=== PATIENT | male | born 1970 | race Caucasian/White ===

== ENCOUNTER 2017-11-14 12:28 | Emergency (ER) | payer SELFPAY ==
[~2017-11-14] VITALS: Ht 172.7 cm; Wt 79.4 kg
[2017-11-14 12:36] VITALS: BP_SYST 147
[2017-11-14] MEDS ORDERED: IBUPROFEN 800 MG TABLET PO ONE (13:15)
[2017-11-14 13:49] VITALS: BP_SYST 135
== END 2017-11-14 13:47 | disposition home or self-care (01) ==
LOC: SED 12:28
DX: S60.462A Insect bite (nonvenomous) of right middle finger, initial encounter (principal); L03.011 Cellulitis of right finger; W57.XXXA Bitten or stung by nonvenomous insect and other nonvenomous arthropods, initial encounter; Y93.89 Activity, other specified; Y92.89 Other specified places as the place of occurrence of the external cause; Y99.8 Other external cause status
CPT/HCPCS: 99283

== ENCOUNTER 2017-11-26 22:11 | Emergency (ER) | payer OTHER ==
[~2017-11-26] VITALS: Ht 172.7 cm; Wt 81.6 kg
[2017-11-26 22:11] VITALS: BP_SYST 164
== END 2017-11-26 22:23 ==
LOC: SED 22:11
DX: Z02.89 Encounter for other administrative examinations (principal)

== ENCOUNTER 2018-01-06 09:19 | Emergency (ER) | payer MEDICAID ==
[~2018-01-06] VITALS: Ht 172.7 cm; Wt 81.6 kg
[2018-01-06 10:30] VITALS: BP_SYST 150
[2018-01-06] MEDS ORDERED: NACL 0.9% 1,000 ML IV ONE (11:07)
[2018-01-06] MEDS ORDERED: FOLIC ACID 1 MG, THIAMINE HCL 100 MG, MAGNESIUM SULFATE 1 GM, MVI 10 ML in NACL 0.9% 1,... IV ONE (11:15)
[2018-01-06 11:32] LABS: BASOPHILS # (AUTO) 0.5 K/uL (0.0-0.2); BASOPHILS % (AUTO) 3.9 % (0.0-2.0); EOSINOPHILS # (AUTO) 0.1 K/uL (0.0-0.4); EOSINOPHILS % (AUTO) 0.9 % (0.0-4.0); HEMATOCRIT 49.9 % (36-54); MEAN CORPUSCULAR HEMOGLOBIN 32 pg (27-31); MEAN CORPUSCULAR HGB CONC 34 % (32-36); MEAN CORPUSCULAR VOLUME 94 fL (79.0-98.0); MONOCYTES # (AUTO) 0.5 K/uL (0.0-1.0); MONOCYTES % (AUTO) 4.4 % (1.7-9.3); NEUTROPHILS # (AUTO) 8.5 K/uL (1.8-7.7); NEUTROPHILS % (AUTO) 73.8 % (40.0-70.0); PLATELET COUNT (AUTO) 272 K/uL (130-430); RED BLOOD CELL COUNT(AUTO) 5.32 MIL/uL (4.2-6.2); RED CELL DISTRIBUTION WIDTH 13.1 % (9.0-15.0); WHITE BLOOD COUNT (AUTO) 11.6 K/uL (4.8-10.8)
[2018-01-06 11:33] LABS: BILIRUBIN,URINE NEGATIVE (NEGATIVE); BLOOD, URINE NEGATIVE (NEGATIVE); CLARITY/URINE CLEAR (CLEAR); COLOR,URINE YELLOW (YELLOW); GLUCOSE,URINE NEGATIVE (NEGATIVE); KETONES,URINE NEGATIVE (NEGATIVE); LEUKOCYTE ESTERASE ,URINE NEGATIVE (NEGATIVE); NITRITE, URINE NEGATIVE (NEGATIVE); PH,URINE 8.5 (5.0-8.0); PROTEIN URINE TRACE (NEGATIVE)
[2018-01-06 11:49] LABS: ANION GAP 8 (5-15); CALCIUM 9.6 mg/dL (8.4-11.0); CHLORIDE 100 mmol/L (98-107); CREATININE 0.97 mg/dL (0.55-1.30); GLUCOSE 110 mg/dL (70-99); POTASSIUM 4.2 mmol/L (3.5-5.1); SODIUM SERUM 136 mmol/L (136-145); UREA NITROGEN, BLOOD 8 mg/dL (8-21)
[2018-01-06 11:50] LABS: GFR AFRICAN AMERICAN 106 mL/min (>90)
[2018-01-06 11:53] LABS: ALANINE AMINOTRANSFERASE 54 U/L (12-78); ALBUMIN 4.4 g/dL (3.4-4.8); AMYLASE 89 U/L (0-100); ASPARTATE AMINOTRANSFERASE 43 U/L (10-37); LIPASE 161 U/L (73-393); TOTAL BILIRUBIN 1.2 mg/dL (0.0-1.0)
[2018-01-06 11:55] LABS: ALCOHOL, BLOOD < 3 mg/dL (<10)
[2018-01-06 11:59] LABS: BARBITURATE, URINE NEGATIVE (NEG <=200); BENZODIAZEPINE, URINE NEGATIVE (NEG <=150); CANNABINOID, URINE POSITIVE (NEG <=50); COCAINE, URINE NEGATIVE (NEG <=150); METHAMPHETAMINES SCREEN,URINE NEGATIVE (NEG <=500); OPIATE, URINE NEGATIVE (NEG <=100); PHENCYCLIDINE SCREEN,URINE NEGATIVE (NEG <=25); UR TRICYCLIC ANTIDEPRESSANTS NEGATIVE (NEG <=300); URINE AMPHETAMINE NEGATIVE (NEG <=500); URINE METHADONE NEGATIVE (NEG <=200); URINE OXYCODONE SCREEN NEGATIVE (NEG <=100); URINE PROPOXYPHENE SCREEN NEGATIVE (NEG <=300)
--- NOTE | 2018-01-06 12:25 | NUR ---
Patient to ER bed 05 to gown for evaluation. Side rails up. Report given to Manjit BROWNE.
--- NOTE | 2018-01-06 13:30 | NUR ---
ER at bedside examining patient.
--- NOTE | 2018-01-06 14:45 | NUR ---
Clare carey in ED - 01/06/18 at 1650 by JOESPH at bedside updated on plan of care. IVF infusing without complication no s/s of distress will cont to monitor
--- NOTE | 2018-01-06 15:45 | NUR ---
at bedside updated on plan of care. IVF infusing without complication no s/s of distress will cont to monitor
[2018-01-06 16:42] VITALS: BP_SYST 132
--- NOTE | 2018-01-06 16:45 | NUR ---
Patient given written and verbal discharge instructions and verbalizes understanding. ER MD discussed with patient the results and treatment provided. Patient in stable condition. ID arm band removed. IV catheter removed intact and dressing applied, no active bleeding. Rx of Ativan given. Patient educated on pain management and to follow up with PMD. Pain Scale 0/10. Opportunity for questions provided and answered. Medication side effect fact sheet provided.
== END 2018-01-06 16:42 | disposition home or self-care (01) ==
LOC: SED 09:19
DX: F10.129 Alcohol abuse with intoxication, unspecified (principal); F12.10 Cannabis abuse, uncomplicated; I10 Essential (primary) hypertension
CPT/HCPCS: 36415; 71045; 80053; 80307; 81003; 82150; 83690; 84484; 85025; 85610; 85730; 93005; 96365; 96366; 99285; G0482; J3411; J3475; J3490; J7030

== ENCOUNTER 2018-01-18 03:06 | Emergency (ER) | payer MEDICAID ==
[~2018-01-18] VITALS: Ht 172.7 cm; Wt 79.4 kg
[2018-01-18 03:27] VITALS: BP_SYST 152
[2018-01-18] MEDS ORDERED: OXYCODONE/ACETAMINOPHEN 5-325 TABLET PO ONE (04:00)
[2018-01-18] MEDS ORDERED: KETOROLAC TROMETHAMINE 30 MG VIAL IM ONE (04:00)
[2018-01-18 04:30] VITALS: BP_SYST 133
== END 2018-01-18 04:30 | disposition home or self-care (01) ==
LOC: SED 03:06
DX: M10.9 Gout, unspecified (principal); I10 Essential (primary) hypertension
CPT/HCPCS: 96372; 99283; J1885

== ENCOUNTER 2021-02-25 11:19 | Emergency (ER) | payer MEDICAID ==
[~2021-02-25] VITALS: Ht 172.7 cm; Wt 83.9 kg
[2021-02-25 11:25] VITALS: BP_SYST 142
[2021-02-25] MEDS ORDERED: HYDR-3917 PO (12:30)
[2021-02-25] MEDS ORDERED: NAPR-688 PO (12:30)
[2021-02-25] MEDS: MORPHINE SULFATE 10 MG/ML VIAL IM ONE (12:40)
[2021-02-25] MEDS: KETAMINE 30 MG/3 ML SYRINGE IM ONE (12:40)
[2021-02-25 12:41] VITALS: BP_SYST 142
== END 2021-02-25 12:41 | disposition home or self-care (01) ==
LOC: SED 11:19
DX: G43.909 Migraine, unspecified, not intractable, without status migrainosus (principal); I10 Essential (primary) hypertension; Z79.899 Other long term (current) drug therapy
CPT/HCPCS: 99284